=== PATIENT | male | born 1965 | race Hispanic/Latino ===

== ENCOUNTER 2016-08-10 13:13 | Emergency (ER) | payer OTHER ==
[2016-08-10 13:54] VITALS: O2SAT 96
--- NOTE | 2016-08-10 14:15 | RAD ---
HISTORY: cough with phlegm COMPARISON: None available TECHNIQUE: Chest PA and lateral FINDINGS: LUNGS: No focal consolidation. Please note that chest x-ray has limited sensitivity for the detection of pulmonary masses. PLEURA: No significant pleural effusion identified. No definite pneumothorax . CARDIOVASCULAR: The cardiomediastinal silhouette appears within normal limits of size. OSSEOUS STRUCTURES: No acute osseous abnormality identified. VISUALIZED UPPER ABDOMEN: Unremarkable. OTHER FINDINGS: None. IMPRESSION: No focal consolidation, significant pleural effusion, or definite pneumothorax identified.
--- NOTE | 2016-08-10 15:19 | C.PDOC ---
History Of Present Illness Patient is a 51 y/o male that presents to the ED for evaluation of shortness of breath, and cough associated with dark yellow sputum for the past week. Patient notes using inhaler at home with some relief. Pt is also requesting detox from heroin, reports using 15-20 bags of heroin intranasally per day. Otherwise, denies any fever, chills, chest pain, or any other associated symptoms at this time. Time Seen by Provider: 08/10/16 13:41 Chief Complaint (Nursing): Cough, Cold, Congestion History Per: Patient History/Exam Limitations: no limitations Onset/Duration Of Symptoms: Days (1 week) Current Symptoms Are (Timing): Still Present Exacerbating Factor(s): Coughing Associated Symptoms: denies: Fever, Chills, Sweating, Chest Pain, Bloody Cough, Heart Racing, Leg/Calf Pain, Ankle/Leg Swelling, Dizziness, Light-headedness, Anxiety, Tingling In Hands Or Face, Musle Spasms In Hands Or Feet Recent travel outside of the [place]: No Additional History Per: Patient Past Medical History Reviewed: Historical Data, Nursing Documentation, Vital Signs Vital Signs: Last Vital Signs Temp 97.7 F 08/10/16 17:03 Pulse 73 08/10/16 17:03 Resp 18 08/10/16 17:03 BP 120/82 08/10/16 17:03 Pulse Ox 96 08/10/16 17:03 Family History: States: No Known Family Hx - Social History Hx Alcohol Use: No Hx Substance Use: Yes Review Of Systems Except As Marked, All Systems Reviewed And Found Negative. Constitutional: Negative for: Fever, Chills Cardiovascular: Negative for: Chest Pain, Palpitations, Edema, Light Headedness Respiratory: Positive for: Cough, Shortness of Breath, Sputum (dark yellow). Negative for: Hemoptysis, Wheezing Gastrointestinal: Negative for: Nausea, Vomiting Physical Exam - Physical Exam Appears: Non-toxic, No Acute Distress Skin: Normal Color, Warm, Dry Head: Atraumatic, Normacephalic Eye(s): bilateral: Normal Inspection, EOMI Nose: Discharge (mild rhinorrhea) Neck: Normal ROM, Supple Chest: Symmetrical, No Tenderness Cardiovascular: Rhythm Regular, No Murmur Respiratory: Normal Breath Sounds, No Accessory Muscle Use, No Rales, No Rhonchi , No Wheezing Gastrointestinal/Abdominal: Soft, No Tenderness Extremity: Normal ROM Neurological/Psych: Oriented x3, Normal Speech, Normal Cognition ED Course And Treatment O2 Sat by Pulse Oximetry: 96 (on RA) Pulse Ox Interpretation: Normal Progress Note: CXR ordered and reviewed. Medical Decision Making Medical Decision Making: pt with neg cxr/. pt requesting rx for ativan for panic attack should he have another one tonight. crisis team notified. 448 pm pt seen by crisis team, given info about locations/programs for suboxone. Disposition - Disposition Referrals: Misha Malloy DO [Staff Provider] - Disposition: HOME/ ROUTINE Disposition Time: 16:47 Condition: STABLE Instructions: Upper Respiratory Infection (ED) Forms: General Discharge Instructions - Clinical Impression Clinical Impression: Upper respiratory infection, Opioid dependence - PA / EVENT ORGANIZER / Resident Statement / has reviewed & agrees with the documentation as recorded. - Scribe Statement The provider has reviewed the documentation as recorded by the Scribe Sandy Darden All medical record entries made by the Scribe were at my direction and personally dictated by me. I have reviewed the chart and agree that the record accurately reflects my personal performance of the history, physical exam, medical decision making, and the department course for this patient. I have also personally directed, reviewed, and agree with the discharge instructions and disposition.
[2016-08-10 17:04] VITALS: BP 120/82; PULSE 73; RESP 18; TEMP 97.7
== END 2016-08-10 17:03 | disposition home or self-care (01) ==
LOC: MERGE 13:13 → C.ER 13:13
DX: J06.9 Acute upper respiratory infection, unspecified (principal); F11.20 Opioid dependence, uncomplicated

== ENCOUNTER 2017-01-20 05:32 | Inpatient (IN) | payer MEDICAID, OTHER ==
--- NOTE | 2017-01-20 05:43 | C.PDOC ---
History Of Present Illness Patient presents to ED with symptoms of withdrawing from substance. Patient was just discharged from [facility] hours ago and is known to be a daily cocaine and heroin abuser. As per who is at bedside patient last used 10:30 -11pm last night. Patient is refusing to answer. No other complaints at this time. Time Seen by Provider: 01/20/17 05:43 Chief Complaint (Nursing): Substance Abuse History Per: Family History/Exam Limitations: clinical condition Onset/Duration Of Symptoms: Hrs Current Symptoms Are (Timing): Still Present Suicide/Self Injury Attempted (Context): None Modifying Factor(s): Cocaine Severity: Mild Associated Symptoms: denies: Depression, Suicidal Thoughts, Suicidal Plan Involuntary Hold By: None Recent travel outside of the [place]: No Past Medical History Reviewed: Historical Data, Nursing Documentation, Vital Signs Vital Signs: Last Vital Signs Temp 97.9 F 01/20/17 05:42 Pulse 86 01/20/17 05:42 Resp 20 01/20/17 05:42 BP 127/87 01/20/17 05:42 Pulse Ox 100 01/20/17 06:11 - Medical History PMH: Anxiety Surgical History: Hernia Repair Family History: States: No Known Family Hx - Social History Hx Alcohol Use: No Hx Substance Use: Yes Review Of Systems Review Of Systems: ROS cannot be obtained secondary to pt's inabilty to answer questions. Physical Exam - Physical Exam Appears: Non-toxic Skin: Warm, Dry, Diaphoretic Head: Normacephalic Eye(s): bilateral: Normal Inspection, PERRL Oral Mucosa: Moist Chest: Symmetrical Cardiovascular: Rhythm Regular Respiratory: No Rales, Rhonchi (Scattered), No Wheezing Gastrointestinal/Abdominal: Soft, No Tenderness, No Guarding, No Rebound Extremity: No Pedal Edema, Capillary Refill (<2 seconds), No Deformity, Other ( Both lower extremities shaking) Extremity: Bilateral: Atraumatic Pulses: Left Dorsalis Pedis: Normal, Right Dorsalis Pedis: Normal Neurological/Psych: Oriented x3 ED Course And Treatment O2 Sat by Pulse Oximetry: 100 (RA) Pulse Ox Interpretation: Normal Disposition Counseled Patient/Family Regarding: Studies Performed, Diagnosis - Disposition Disposition Time: 05:43 Condition: FAIR Forms: [employer] ([place]) - Clinical Impression Clinical Impression: Drug abuse, Drug dependence - Scribe Statement The provider has reviewed the documentation as recorded by the Sharla Jenkins All medical record entries made by the Sharla were at my direction and personally dictated by me. I have reviewed the chart and agree that the record accurately reflects my personal performance of the history, physical exam, medical decision making, and the department course for this patient. I have also personally directed, reviewed, and agree with the discharge instructions and disposition. Physician Patient Turnover Patient Signed Over To: Carolyn Craig Handoff Comments: pending labs and dispostion
[2017-01-20] MEDS ORDERED: Sodium Chloride 0.9% 1,000 ML IV ONE (05:44)
[2017-01-20 05:45] VITALS: BMI 28.4
[2017-01-20] MEDS ORDERED: Sodium Chloride 0.9% 1,000 ML ONE (06:08)
[2017-01-20 06:52] LABS: BASO # 0.1 K/uL (0.0-0.2); BASO % 0.9 % (0.0-2.0); EOS # 0.2 K/uL (0.0-0.7); EOS % 3.6 % (0.0-4.0); HEMATOCRIT 38.8 % (35.0-51.0); LYMPH % 16.6 % (20.0-40.0); MEAN CELL VOLUME 79.6 fL (80.0-94.0); MEAN CORPUSCULAR HEMOGLOBIN 26.5 pg (27.0-31.0); MEAN CORPUSCULAR HGB CONC 33.4 g/dL (33.0-37.0); MEAN PLATELET VOLUME 9.7 fL (7.2-11.7); MONO # 0.3 K/uL (0.0-0.8); MONO % 4.7 % (0.0-10.0); RED CELL DISTRIBUTION WIDTH 13.8 % (11.5-14.5)
[2017-01-20 06:53] LABS: URINE BILIRUBIN NEGATIVE (NEGATIVE); URINE BLOOD NEGATIVE (NEGATIVE); URINE COLOR Straw (YELLOW); URINE GLUCOSE (UA) NORMAL (Normal); URINE KETONE NEGATIVE (NEGATIVE); URINE LEUKOCYTE ESTERASE NEG Leu/uL (Negative); URINE PROTEIN NEGATIVE (NEGATIVE); URINE UROBILINOGEN NORMAL mg/dL (0.2-1.0)
[2017-01-20 07:00] LABS: CHLORIDE 106 mmol/L (98-107)
[2017-01-20 07:01] LABS: POTASSIUM 4.4 mmol/L (3.6-5.2); SODIUM 137 mmol/L (132-148)
[2017-01-20 07:03] LABS: ALB/GLOB RATIO 1.3 (1.0-2.1); ALKALINE PHOSPHATASE 39 U/L (38-126); AST/SGOT 20 U/L (17-59); BILIRUBIN,TOTAL 0.4 mg/dL (0.2-1.3); BLOOD UREA NITROGEN 12 mg/dL (9-20); CARBON DIOXIDE 21 mmol/L (22-30); GFR AFRICAN-AMERICAN > 60; TOTAL PROTEIN 6.7 g/dL (6.3-8.3)
[2017-01-20 07:04] LABS: ALCOHOL SERUM < 10 mg/dl (0-10); ALT/SGPT 29 U/L (21-72); CALCIUM 8.6 mg/dl (8.6-10.4); GLUCOSE,RANDOM 99 mg/dL (75-110)
[2017-01-20] MEDS ORDERED: Petrolatum Oint Foilpak (5 gm) ONE (19:08)
[2017-01-20] MEDS ORDERED: Aluminum Hydroxide/Magnesium Hydroxide Susp (30 mL) PO PRN (22:45)
--- NOTE | 2017-01-21 09:24 | PCM.BM ---
<Maria L Negro - Last Filed: 01/21/17 09:22> Treatment Plan Problems - Problems identified on initial assessmt Potential for opiate withdrawals Date Initiated: 01/21/17 Assessment reference: NA Status: Active Treatment assets and liabiliti Patient Assests: adapts well, cooperative, ADL independent, physically healthy, negotiates basic needs Patient Liabilities: substance abuse - Milieu Protocol Maintain good personal hygiene: daily Encourage regular showers, daily Remind patient to perform daily oral care, daily Assist patient to perform ADL's Conduct patient checks and document Observation sheet: Q15 minutes Maintain personal safety: every shift Educate patient to report safety concerns to staff, every shift Monitor environment for contraband/sharps Medication safety: Monitor for expected outcome, potential side effects: every shift, Assess barriers to learning: every shift, Assess readiness for medication education: every shift <Leny Trevino - Last Filed: 01/21/17 11:46> Family Contact Family involvement: Family/SO is involved Family contact: Patient agrees to contact, Telephone contact initiated by staff Family contact name: Gladys Jose Family contacted how many times per week?: 4 - Goals for Treatment Patient goals for treatment: Complete detox and change his physical location. Discharge/Continuing Care - Education Needs Education Needs: Patient Medication, Patient Diagnosis/Disease Process, Patient Coping Skills, Patient Anger Management skills, Patient Placement options, Patient Community resources - Discharge Discharge Criteria: Free of agitation, Normal sleep pattern, No longer exhibiting s/s of withdrawal, Reduction of target symptoms Discharge to:: With Family - Treatment Team Participation Patient/Family/SO Statement: 01/21/17 11:45 "I wanna move with my ...we gotta do this togather. She just came outta detox too..." Discussed with Family/SO: No Was Patient/Family/SO present at Treatment Team Meeting: Yes
--- NOTE | 2017-01-21 14:15 | PCM.PSYCH ---
Initial Psychiatric Evaluation - Initial Psychiatric Evaluation Type of Admission: Voluntary Legal Status: Capacity Chief Complaint (in patient's own words): "I used too much" History of Present Illness and Precipitating Events: The pt is seen, chart reviewed and case discussed. This is a 51 year old male with no past medical history came into the hospital for heroin withdrawal and detoxification. Pt admits to using heroin for the past 4 years. He initially used $3000 worth of pills but then switched over to snorting 30-40 bags a day. He longest he has ever been sober with heroin was for 2 1/2 months this year. Pt also admitted to using 2g of cocaine daily intranasally for the past 30 years. Pt was administered methadone last night and did not complain of any withdrawal symptoms overnight but he was extremely withdrawing and agitated in ED and got total of 6 mg ativan. Denies smoking currently or in the past. He drinks alcohol socially. Denies any suicidal or homicidal ideation. Denies any mood issues, difficulty sleeping, or changes in appetite. Pt currently lives with his . He has been to a detox program once. PMH: Denies Allergies: Denies Medications: uses mother's inhaler when pt has difficulty breathing Family Hx: Denies any medical issues but also uses heroin and had several overdoses. Current Medications: Active Medications Generic Name Dose Route Start Last Admin Trade Name Freq PRN Reason Stop Dose Admin Al Hydrox/Mg Hydrox/Simethicone 30 ml 01/20/17 22:45 Maalox 30 Ml PO TID PRN Indigestion / Heartburn Clonidine HCl 0.1 mg 01/20/17 22:45 Catapres PO Q8 PRN COWS Score More or Equal to 5 Haloperidol 5 mg 01/20/17 22:52 Haldol PO Q1H PRN agitation max 4x/24h Loperamide HCl 2 mg 01/20/17 22:45 Imodium PO Q8 PRN Diarrhea Methadone HCl 15 mg 01/22/17 10:00 Methadone PO 01/26/17 09:59 Q24H HUNTER Taper Ondansetron HCl 4 mg 01/20/17 22:45 Zofran Tab PO Q8 PRN Nausea/Vomiting Past Psychiatric History - Past Psychiatric History Pertinent Medical Hx (Current Medical&Sleep Prob, Allergies): Allergies Allergy/AdvReac Type Severity Reaction Status Date / Time No Known Allergies Allergy Verified 01/20/17 05:48 Albuterol HFA [Ventolin HFA 90 mcg/actuation (8 g)] 1 puff IH Q4 PRN #1 inh 01/27 Azithromycin [Zithromax] 250 mg PO DAILY #1 packet 01/20/17 Methylprednisolone [Medrol Dose Pack (21 tabs)] 4 mg PO ASDIR #21 mg 01/20/17 Review of Systems - Review of Systems All systems: reviewed and no additional remarkable complaints except - Neurological Neurological: UNREMARKABLE - Psychiatric Psychiatric: absent: Abnormal Sleep Pattern, Anhedonia, Auditory Hallucinations , Change in Appetite, Difficulty Concentrating, Homicidal Ideation, Suicidal Ideation, Visual Hallucinations Mental Status Examination - Personal Presentation Personal Presentation: Looks stated age - Affect Affect: Constricted - Motor Activity Motor Activity: Calm - Reliability in Providing Information Reliability in Providing Information: Good - Speech Speech: Organized - Mood Mood: Neutral - Formal Thought Process Formal Thought Process: No Impairment - Obsessions/Compulsions Obsessions: No Compulsions: No - Cognitive Functions Orientation: Person, Place, Situation, Time Sensorium: Alert Attention/Concentration: Attentive Abstract Thinking: [place] Estimate of Intelligence: Average Judgement: Intact, as evidence by: Good judgement Memory: Recent intact, as evidence by: Ability to recall events of the day, Remote intact, as evidenced by: Abilit to recall sig. life events - Risk Risk: Withdrawal, Diminished functioning - Strength & Assets Inventory Strength & Assets Inventory: Cooperative - Limitations Limitations: Other DSM 5 DX - DSM 5 DSM 5 Diagnosis: Opioid Use disorder Opioid withdrawal Cocaine use d/o - severe - Recommended/Plan of Treatment Treatment Recommendations and Plan of Treatment: Methadone detox As needed medications Gabapentin for augmentation Attend groups and activities Supportive therapy and psychoeducation RI for abstinence CBT for relapse prevention Encourage MAT Refer to rehab or IOP Attend self-help groups as well 34 min Projected ELOS: 4-5 days Prognosis: Good with treatment - Smoking Cessation Smoking Cessation Initiated: No
--- NOTE | 2017-01-23 13:36 | PCM.PYCHPN ---
Psychiatric Progress Note - Psychiatric Progress Note Patient seen today, length of contact: 18 min Patient Chief Complaint: "I want to leave" Problems Identified/Issues Discussed: The pt is seen, chart reviewed, case discussed with staff. The pt is compliant with medications and reports no side-effects. Symptoms are improving but needs more time to stabilize. After care discussed, support and psychoeducation given. He was asking for d/c just bc he couldn't sleep well at night He responded well to reassurance and agreed to stay Medication Change: Yes (detox chages daily) Medical Record Reviewed: Yes Mental Status Examination - Cognitive Function Orientation: Person, Place, Situation, Time Memory: Intact Attention: Poor Concentration: Poor Association: WNL Fund of Knowledge: Poor - Mood Mood: Anxious - Affect Affect: Constricted - Speech Speech: Appropriate - Formal Thought Process Formal Thought Process: No Impairment - Suicidal Ideation Suicidal Ideation: No - Homicidal Ideation Homicidal Ideation: No Goal/Treatment Plan - Goal/Treatment Plan Need for Continued Stay: Discharge may exacerbated symptoms, Severe functional impairment Progress Toward Problem(s) and Goals/Treatment Plan: Methadone detox As needed medications increased seroquel for insomnia and irritability Gabapentin for augmentation Attend groups and activities Supportive therapy and psychoeducation [place] for abstinence CBT for relapse prevention Encourage MAT Refer to rehab or IOP Attend self-help groups as well Estimated Date of D/C: 01/24/17
[2017-01-24 06:22] VITALS: RESP 18
[2017-01-24 07:49] VITALS: BP 103/67; PULSE 90; TEMP 98; O2SAT 97
--- NOTE | 2017-01-24 14:49 | PCM.PYCHPN ---
Psychiatric Progress Note - Psychiatric Progress Note Patient seen today, length of contact: 17 min Patient Chief Complaint: "Not well" Problems Identified/Issues Discussed: The pt is seen, chart reviewed, case discussed with staff. Support given, CBT and MD used briefly No new symptoms reported, improving slowly and needs more time Still asking for d/c but agreed again after reassurance High risk for relapse - discussed within MD frame No SEs from medications, risks discussed. After care discussed - he will try suboxone too Medication Change: Yes (detox chages daily) Medical Record Reviewed: Yes Mental Status Examination - Cognitive Function Orientation: Person, Place, Situation, Time Memory: Intact Attention: Poor Concentration: Poor Association: WNL Fund of Knowledge: Poor - Mood Mood: Anxious - Affect Affect: Constricted - Speech Speech: Appropriate - Formal Thought Process Formal Thought Process: No Impairment - Suicidal Ideation Suicidal Ideation: No - Homicidal Ideation Homicidal Ideation: No Goal/Treatment Plan - Goal/Treatment Plan Need for Continued Stay: Discharge may exacerbated symptoms, Severe functional impairment Progress Toward Problem(s) and Goals/Treatment Plan: Methadone detox As needed medications increased seroquel for insomnia and irritability Gabapentin for augmentation Attend groups and activities Supportive therapy and psychoeducation MD for abstinence CBT for relapse prevention Encourage MAT Refer to rehab or IOP Attend self-help groups as well Estimated Date of D/C: 01/24/17
--- NOTE | 2017-01-24 15:19 | PCM.PYCHDC ---
Mental Status Examination - Mental Status Examination Orientation: Person, Place, Situation, Time Memory: Intact Mood: Neutral Affect: Other (Appropriate) Speech: Appropriate Attention: WNL Concentration: WNL Association: WNL Fund of Knowledge: WNL Formal Thought Process: No Impairment Description of patient's judgement and insight: Good Psychotic Thoughts and Behaviors: None Suicidal Ideation: No Current Homicidal Ideation?: No Discharge Summary - Discharge Note Reason for Hospitalization: Opiate, benzos and cocaine use. Laboratory Data: Reviewed Consultations:: List each consultation separately and include: 1. Reason for request. 2. Findings. 3. Follow-up Summary of Hospital Course include:: 1. Description of specific treatment plan utilized for patients during their course of treatmen. 2. Summarize the time- course for resolution of acute symptoms and/or regressed behaviors. 3. Describe issues identified and worked on during hospitalization. 4. Describe medication utilized. 5. Describe medical problems identified and treated. 6. Reassessment of suicide risk Summary of Hospital Course: The pt is seen, chart reviewed and case discussed. This is a 51 year old male with no past medical history came into the hospital for heroin withdrawal and detoxification. Pt admits to using heroin for the past 4 years. He initially used $3000 worth of pills but then switched over to snorting 30-40 bags a day. He longest he has ever been sober with heroin was for 2 1/2 months this year. Pt also admitted to using 2g of cocaine daily intranasally for the past 30 years. Pt was administered methadone last night and did not complain of any withdrawal symptoms overnight but he was extremely withdrawing and agitated in ED and got total of 6 mg ativan. Denies smoking currently or in the past. He drinks alcohol socially. Denies any suicidal or homicidal ideation. Denies any mood issues, difficulty sleeping, or changes in appetite. Pt currently lives with his . He has been to a detox program once. PMH: Denies Allergies: Denies Medications: uses mother's inhaler when pt has difficulty breathing Family Hx: Denies any medical issues but also uses heroin and had several overdoses. During his hospital stay, patient was treated with methadone, Ativan and other when necessary medications. Patient was attending groups. With the above treatment patient started feeling better. Today patient was stable and ready for discharge. At the time of evaluation and discharge, patient was awake alert oriented 3, had no delusions, no auditory or visual hallucinations, no suicidal ideations or homicidal ideations, patient was discharged in a stable condition. - Final Diagnosis (DSM 5) Condition upon Discharge: FAIR Disposition: HOME/ ROUTINE Prescriptions/Medication Reconciliation: hydrOXYzine HCl [Atarax] 50 mg PO BID PRN #60 tab PRN Reason: Anxiety QUEtiapine [SEROquel] 200 mg PO HS #30 tab traZODone [Desyrel] 150 mg PO HS PRN #30 tab PRN Reason: inmomnia - Smoking Cessation Smoking Cessation Medication prescribed: No - Antipsychotic Medications Pt discharged on 2 or more routine antipsychotic medications: No
== END 2017-01-24 08:00 | disposition home or self-care (01) | DRG 745 ==
LOC: C.ER 05:32 → C.7D 12:47 → UNDOADMIN 12:47 → C.7D 18:40
PROVIDERS: ADMIT Psychiatry & Neurology Psychiatry; ATTEND Psychiatry & Neurology Psychiatry
PROC: HZ91ZZZ Pharmacotherapy for Substance Abuse Treatment, Methadone Maintenance (ICD-10-PCS; principal; 2017-01-20)
PROC: HZ2ZZZZ Detoxification Services for Substance Abuse Treatment (ICD-10-PCS; 2017-01-20)
PROC: HZ52ZZZ Individual Psychotherapy for Substance Abuse Treatment, Cognitive-Behavioral (ICD-10-PCS; 2017-01-20)
PROC: HZ59ZZZ Individual Psychotherapy for Substance Abuse Treatment, Supportive (ICD-10-PCS; 2017-01-20)
PROC: HZ56ZZZ Individual Psychotherapy for Substance Abuse Treatment, Psychoeducation (ICD-10-PCS; 2017-01-20)
DX: F11.23 Opioid dependence with withdrawal (principal); F14.90 Cocaine use, unspecified, uncomplicated; G47.00 Insomnia, unspecified; R45.4 Irritability and anger